=== PATIENT | male | born 1980 | race Caucasian/White ===

== ENCOUNTER 2016-11-26 12:25 | Outpatient (CLI) ==
[2016-11-26 13:51] LABS: BASOPHILS # (AUTO) 0.1 K/uL (0-0.2); BASOPHILS % (AUTO) 0.9 % (0.0-3.0); EOSINOPHILS # (AUTO) 0.2 K/ul (0.0-0.7); EOSINOPHILS % (AUTO) 3.1 % (0.0-7.0); HEMATOCRIT 40.7 % (42.0-52.0); HEMOGLOBIN 13.9 g/dl (14.0-18.0); IMMATURE GRANULOCYTE % (AUTO) 0.2 % (0.0-5.0); LYMPHOCYTES # (AUTO) 3.5 K/uL (0.60-3.4); LYMPHOCYTES % (AUTO) 53.6 (10.0-50.0); MEAN CORPUSCULAR HEMOGLOBIN 30.3 pg (27.0-31.0); MEAN CORPUSCULAR HGB CONC 34.2 (31.8-35.4); MEAN CORPUSCULAR VOLUME 88.7 fl (80.0-94.0); MONOCYTES # (AUTO) 0.8 K/uL (0.4-2.0); MONOCYTES % (AUTO) 12.8 (0-10); NEUTROPHILS # (AUTO) 1.9 K/ul (2.0-6.9); NEUTROPHILS % (AUTO) 29.4; PLATELET COUNT 233 10^3/uL (140-440); RED BLOOD COUNT 4.59 10^6/ul (4.70-6.10); WHITE BLOOD COUNT 6.55 K/ul (4.2-10.2)
[2016-11-26 14:11] LABS: COCAIN SCREEN,URINE NEGATIVE (NEGATIVE)
[2016-11-26 14:21] LABS: ALBUMIN/GLOBULIN RATIO 1.11; ANION GAP 15.9; BILIRUBIN,TOTAL 0.12 mg/dL (0.00-1.20); BUN/CREATININE RATIO 12.61; CALCIUM 9.6 mg/dL (8.2-10.2); CHOL/HDL RATIO 5.1 (4.5-6.4); CREATININE 1.11 mg/dL (0.60-1.10); POTASSIUM 3.9 mmol/L (3.5-5.1); TOTAL PROTEIN 7.6 g/dL (6.4-8.2)
== END 2016-11-26 12:26 | disposition home or self-care (01) ==
LOC: LAB 12:25
PROVIDERS: ATTEND Nurse Practitioner Family
DX: Z86.59 Personal history of other mental and behavioral disorders (principal)
CPT/HCPCS: 36415; 80053; 80061; 80306; 84443; 85025

== ENCOUNTER 2017-07-07 16:32 | Outpatient (CLI) | END 2017-07-07 16:33 | disposition home or self-care (01) | LOC: FCC-LAB 16:32 | PROVIDERS: ATTEND Nurse Practitioner Family | DX: K21.9 Gastro-esophageal reflux disease without esophagitis (principal); Z86.59 Personal history of other mental and behavioral disorders | CPT/HCPCS: 36415; 80053; 80061; 80306; 85025 ==

== ENCOUNTER 2017-07-26 11:24 | Outpatient (CLI) ==
--- NOTE | 2017-07-26 12:53 | DI ---
EXAM: Radiographs, right hand HISTORY: Right hand pain. COMPARISON: None available. TECHNIQUE: Three views. FINDINGS: There is cortical irregularity and discontinuity along the proximal aspect of the lunate b one. The osseous structures are otherwise intact. No significant deformity interval widening identi fied. Joint spaces are maintained. No localized soft tissue abnormality is detected. IMPRESSION: Suspect displaced lunate fracture. CT is recommended for further evaluation.
== END 2017-07-26 11:25 | disposition home or self-care (01) ==
LOC: RAD 11:24
PROVIDERS: ATTEND Nurse Practitioner Family
DX: M79.641 Pain in right hand (principal); Z20.2 Contact with and (suspected) exposure to infections with a predominantly sexual mode of transmission
CPT/HCPCS: 36415; 80053; 80074; 81001; 86592; 86631; 86695; 86696; 86701; 87800